=== PATIENT | male | born 1985 | race Caucasian/White ===

== ENCOUNTER 2017-06-27 16:33 | Emergency (ER) | payer OTHER ==
--- NOTE | 2017-06-27 17:06 | ER Document Report ---
ED Medical Screen (RME) - General Chief Complaint: Suicidal Ideation Stated Complaint: PSYCH EVAL Time Seen by Provider: 06/27/17 16:59 Notes: RAPID MEDICAL EVALUATION DISCLOSURE I have seen this patient as part of a Rapid Medical Evaluation and, if applicable, placed any initially appropriate orders. The patient will be seen and fully evaluated, including a full history and physical exam, by a provider ( in Main ED or Fast Track) when a room becomes available. 31-year-old male here with thoughts of suicide ongoing for the past few weeks. He has a plan to shoot himself with "a gun to the head". He reports that he no longer has guns in the house and that he gave him to law enforcement. He denies any homicidal ideations. He denies hallucinations. He last used cocaine several weeks ago. Today he has been drinking alcohol (whiskey). EXAM Mildly tachycardic (likely secondary to emotional state) Tearful Appears depressed TRAVEL OUTSIDE OF THE [place] IN LAST 30 DAYS: No - Related Data Allergies/Adverse Reactions: No Known Allergies Allergy (Unverified 06/27/17 16:34) Past Medical History - Social History Chew tobacco use (# tins/day): No Frequency of alcohol use: Heavy Drug Abuse: Cocaine, Marijuana Renal/ Medical History: Denies: Hx Peritoneal Dialysis Past Surgical History: Reports: Hx Abdominal Surgery - hernia repairs Physical Exam - Vital signs Vitals: Temp Pulse Resp BP Pulse Ox 98.6 F 118 H 20 134/84 H 96 06/27/17 16:43 06/27/17 16:43 06/27/17 16:43 06/27/17 16:43 06/27/17 16:43 Course - Vital Signs Vital signs: Temp Pulse Resp BP Pulse Ox 98.6 F 118 H 20 134/84 H 96 06/27/17 16:43 06/27/17 16:43 06/27/17 16:43 06/27/17 16:43 06/27/17 16:43
[2017-06-27 17:44] LABS: ABSOLUTE LYMPHOCYTES (AUTO) 3.4 10^3/uL (0.5-4.7); ABSOLUTE MONOCYTES (AUTO) 0.6 10^3/uL (0.1-1.4); ABSOLUTE NEUT (AUTO) 5.1 10^3/uL (1.7-8.2); BASOPHILS % (AUTO) 0.2 % (0-2); EOSINOPHILS % (AUTO) 0.3 % (0-6); HEMATOCRIT 50.6 % (37.9-51.0); HEMOGLOBIN 17.2 g/dL (13.5-17.0); LYMPHOCYTES % (AUTO) 37.6 % (13-45); MEAN CORPUSCULAR HEMOGLOBIN 30.8 pg (27.0-33.4); MEAN CORPUSCULAR VOLUME 90 fl (80-97); MONOCYTES % (AUTO) 6.4 % (3-13); PLATELET COUNT 304 10^3/uL (150-450); RED BLOOD COUNT 5.59 10^6/uL (4.35-5.55); RED CELL DISTRIBUTION WIDTH 13.4 % (11.5-14.0); SEGMENTED NEUTROPHILS % (AUTO) 55.5 % (42-78); TOTAL CELLS COUNTED % (AUTO) 100 %; WHITE BLOOD COUNT 9.1 10^3/uL (4.0-10.5)
[2017-06-27 17:58] LABS: ALANINE AMINOTRANSFERASE 32 U/L (21-72); ALBUMIN 5.4 g/dL (3.5-5.0); ALCOHOL 182 mg/dL (NONE DETECTED); ALKALINE PHOSPHATASE 73 U/L (38-126); ANION GAP 16 (5-19); ASPARTATE AMINO TRANSFERASE 28 U/L (17-59); BILIRUBIN,DIRECT 0.2 mg/dL (0.0-0.4); BILIRUBIN,TOTAL 0.5 mg/dL (0.2-1.3); BLOOD UREA NITROGEN 10 mg/dL (7-20); CALCIUM 10.1 mg/dL (8.4-10.2); CARBON DIOXIDE 25 mmol/L (22-30); CHLORIDE 109 mmol/L (98-107); GLUCOSE 92 mg/dL (75-110); POTASSIUM 4.4 mmol/L (3.6-5.0); SODIUM 149.7 mmol/L (137-145); TOTAL PROTEIN 8.4 g/dL (6.3-8.2)
[2017-06-27 17:59] LABS: ACETAMINOPHEN < 10 ug/mL (10-30); SALICYLATE < 1.0 mg/dL (2.0-20.0)
--- NOTE | 2017-06-27 18:18 | ER Document Report ---
ED General - General Chief Complaint: Suicidal Ideation Stated Complaint: PSYCH EVAL Time Seen by Provider: 06/27/17 16:59 Mode of Arrival: Medic Information source: Patient, Law Enforcement Notes: 31-year-old male with no significant past medical history presents via police escort after his friends called them after the patient threatened to shoot himself in the head. She states that he has been depressed over the last few months because of "job issues". He states that he does not have stable housing at this time. He does admit to cocaine a few weeks prior to arrival and whiskey drinking today. Denies prior suicide attempt, psychiatric admission. He has no physical complaints at this time. Denies homicidal ideation. TRAVEL OUTSIDE OF THE [place] IN LAST 30 DAYS: No - HPI Onset: Just prior to arrival Associated symptoms: None Exacerbated by: Denies Relieved by: Denies Similar symptoms previously: No Recently seen / treated by doctor: No - Related Data Allergies/Adverse Reactions: No Known Allergies Allergy (Unverified 06/27/17 16:34) Past Medical History - General Information source: Patient - Social History Smoking Status: Current Every Day Smoker Chew tobacco use (# tins/day): No Frequency of alcohol use: Heavy Drug Abuse: Cocaine, Marijuana Lives with: Friend Family History: Reviewed & Not Pertinent Patient has suicidal ideation: Yes Patient has homicidal ideation: No - Medical History Medical History: Negative Renal/ Medical History: Denies: Hx Peritoneal Dialysis Past Surgical History: Reports: Hx Abdominal Surgery - hernia repairs Review of Systems - Review of Systems Notes: REVIEW OF SYSTEMS: CONSTITUTIONAL : Denies fever, chills, or sweats. Denies recent illness. Denies weight loss, recent hospitalizations. EENT: Denies visula changes, eye pain. Denies nasal or sinus congestion or discharge. Denies sore throat, oral lesions, difficulty swallowing. CARDIOVASCULAR: Denies chest pain. Denies palpitations or racing or irregular heart beat. Denies lower extremity edema. RESPIRATORY: Denies cough, cold, or chest congestion. Denies shortness of breath, difficulty breathing, or wheezing. GASTROINTESTINAL: Denies abdominal pain or distention. Denies nausea, vomiting , or diarrhea. Denies blood in vomitus, stools, or per rectum. Denies black, tarry stools. Denies constipation. GENITOURINARY: Denies difficulty urinating, painful urination, burning, frequency, blood in urine, or vaginal discharge. MUSCULOSKELETAL: Denies back or neck pain or stiffness. Denies joint pain or swelling. SKIN: Denies rash, lesions or sores. HEMATOLOGIC : Denies easy bruising or bleeding. LYMPHATIC: Denies swollen, enlarged glands. NEUROLOGICAL: Denies confusion or altered mental status. Denies passing out or loss of consciousness. Denies dizziness or lightheadedness. Denies headache. Denies weakness or paralysis or loss of use of either side. Denies problems with gait or speech. Denies sensory loss, numbness, or tingling. Denies seizures. PSYCHIATRIC: Admits to anxiety and stress. It is to depression, suicidal ideation. Denies homicidal ideation, visual and auditory hallucinations. Physical Exam - Vital signs Vitals: Temp Pulse Resp BP Pulse Ox 98.6 F 118 H 20 134/84 H 96 06/27/17 16:43 06/27/17 16:43 06/27/17 16:43 06/27/17 16:43 06/27/17 16:43 Interpretation: Normal, Hypertensive - Notes Notes: PHYSICAL EXAMINATION: GENERAL: Well-appearing, well-nourished and in no acute distress. HEAD: Atraumatic, normocephalic. EYES: Pupils equal round and reactive to light, extraocular movements intact, sclera anicteric, conjunctiva are normal. ENT: Nares patent, oropharynx clear without exudates. Moist mucous membranes. NECK: Normal range of motion, supple without lymphadenopathy LUNGS: Breath sounds clear to auscultation bilaterally and equal. No wheezes rales or rhonchi. HEART: Regular rate and rhythm without murmurs ABDOMEN: Soft, nontender, nondistended abdomen. No guarding, no rebound. No masses appreciated. Musculoskeletal: Normal range of motion, no pitting or edema. No cyanosis. NEUROLOGICAL: Cranial nerves grossly intact. Normal speech, normal gait. Normal sensory, motor exams PSYCH: tearful, admits to suicidal ideation. Denies homicidal ideation. Denies visual and auditory hallucinations. SKIN: Warm, Dry, normal turgor, no rashes or lesions noted. Course - Re-evaluation Re-evalutation: 06/27/17 22:08 Laboratory 06/27/17 06/27/17 06/27/17 17:10 17:10 17:10 WBC 9.1 RBC 5.59 H Hgb 17.2 H Hct 50.6 MCV 90 MCH 30.8 MCHC 34.0 RDW 13.4 Plt Count 304 Seg Neutrophils % 55.5 Lymphocytes % 37.6 Monocytes % 6.4 Eosinophils % 0.3 Basophils % 0.2 Absolute Neutrophils 5.1 Absolute Lymphocytes 3.4 Absolute Monocytes 0.6 Absolute Eosinophils 0.0 Absolute Basophils 0.0 Sodium 149.7 H Potassium 4.4 Chloride 109 H Carbon Dioxide 25 Anion Gap 16 BUN 10 Creatinine 0.92 Est GFR ( Amer) > 60 Est GFR (Non-Af Amer) > 60 Glucose 92 Calcium 10.1 Total Bilirubin 0.5 Direct Bilirubin 0.2 Neonat Total Bilirubin Not Reportable Neonat Direct Bilirubin Not Reportable Neonat Indirect Bili Not Reportable AST 28 ALT 32 Alkaline Phosphatase 73 Total Protein 8.4 H Albumin 5.4 H Urine Color YELLOW Urine Appearance CLEAR Urine pH 5.0 Ur Specific [place] 1.017 Urine Protein NEGATIVE Urine Glucose (UA) NEGATIVE Urine Ketones NEGATIVE Urine Blood NEGATIVE Urine Nitrite NEGATIVE Urine Bilirubin NEGATIVE Urine Urobilinogen NEGATIVE Ur Leukocyte Esterase NEGATIVE Urine WBC (Auto) 1 Urine RBC (Auto) 0 U Hyaline Cast (Auto) 1 Urine Mucus (Auto) MOD Urine Ascorbic Acid NEGATIVE Salicylates < 1.0 L Urine Opiates Screen Urine Methadone Screen Acetaminophen < 10 L Ur Barbiturates Screen Ur Phencyclidine Scrn Ur Amphetamines Screen U Benzodiazepines Scrn Urine Cocaine Screen U Marijuana (THC) Screen Serum Alcohol 182 06/27/17 17:10 WBC RBC Hgb Hct MCV MCH MCHC RDW Plt Count Seg Neutrophils % Lymphocytes % Monocytes % Eosinophils % Basophils % Absolute Neutrophils Absolute Lymphocytes Absolute Monocytes Absolute Eosinophils Absolute Basophils Sodium Potassium Chloride Carbon Dioxide Anion Gap BUN Creatinine Est GFR ( Amer) Est GFR (Non-Af Amer) Glucose Calcium Total Bilirubin Direct Bilirubin Neonat Total Bilirubin Neonat Direct Bilirubin Neonat Indirect Bili AST ALT Alkaline Phosphatase Total Protein Albumin Urine Color Urine Appearance Urine pH Ur Specific [place] Urine Protein Urine Glucose (UA) Urine Ketones Urine Blood Urine Nitrite Urine Bilirubin Urine Urobilinogen Ur Leukocyte Esterase Urine WBC (Auto) Urine RBC (Auto) U Hyaline Cast (Auto) Urine Mucus (Auto) Urine Ascorbic Acid Salicylates Urine Opiates Screen NEGATIVE Urine Methadone Screen NEGATIVE Acetaminophen Ur Barbiturates Screen NEGATIVE Ur Phencyclidine Scrn NEGATIVE Ur Amphetamines Screen NEGATIVE U Benzodiazepines Scrn NEGATIVE Urine Cocaine Screen UNCONFIRMED POSITIVE U Marijuana (THC) Screen NEGATIVE Serum Alcohol Medically cleared for psychiatric evaluation. 06/27/17 23:54 31-year-old male with no significant past medical history presents via police escort after his friends called them after the patient threatened to shoot himself in the head. She states that he has been depressed over the last few months because of "job issues". He states that he does not have stable housing at this time. He does admit to cocaine a few weeks prior to arrival and whiskey drinking today. Denies prior suicide attempt, psychiatric admission. He has no physical complaints at this time. Denies homicidal ideation. Urine drug screen positive for cocaine. Patient remained cooperative throughout his ED course. He is medically cleared for psychiatric evaluation in the morning. - Vital Signs Vital signs: Temp Pulse Resp BP Pulse Ox 98.4 F 114 H 20 134/65 H 97 06/27/17 20:54 06/27/17 20:54 06/27/17 20:54 06/27/17 20:54 06/27/17 20:54 - Laboratory Result Diagrams: 06/27/17 17:10 06/27/17 17:10 Laboratory results interpreted by me: 06/27/17 06/27/17 17:10 17:10 RBC 5.59 H Hgb 17.2 H Sodium 149.7 H Chloride 109 H Total Protein 8.4 H Albumin 5.4 H Salicylates < 1.0 L Acetaminophen < 10 L
[2017-06-27 18:28] LABS: APPEARANCE,URINE CLEAR; BILIRUBIN,URINE NEGATIVE (NEGATIVE); COLOR,URINE YELLOW; GLUCOSE, URINE NEGATIVE (NEGATIVE); KETONES,URINE NEGATIVE (NEGATIVE); LEUKOCYTE ESTERASE,URINE NEGATIVE (NEGATIVE); NITRITE,URINE NEGATIVE (NEGATIVE); PROTEIN,URINE NEGATIVE (NEGATIVE); URINE AMPHETAMINES SCREEN NEGATIVE; URINE BARBITURATES SCREEN NEGATIVE; URINE BENZODIAZEPINES SCREEN NEGATIVE; URINE COCAINE SCREEN UNCONFIRMED POSITIVE; URINE MARIJUANA (THC) SCREEN NEGATIVE; URINE METHADONE SCREEN NEGATIVE; URINE PHENCYCLIDINE SCREEN NEGATIVE; URINE SPECIFIC GRAVITY 1.017; UROBILINOGEN,URINE NEGATIVE mg/dL (<2.0)
--- NOTE | 2017-06-27 18:46 | EKG REPORT ---
SEVERITY:- NORMAL ECG - SINUS RHYTHM : Confirmed by: Eduardo Thomas MD 27-Jun-2017 18:45:11
[2017-06-27] MEDS ORDERED: LORAZEPAM 1 MG TABLET PO ONE (22:26)
--- NOTE | 2017-06-28 10:31 | ER Document Report ---
Doctor's Note Notes: 06/28/17 10:30 Rounds: Chart reviewed and patient interviewed. Patient's being evaluated for substance abuse and suicidal thoughts. He says he does not feel suicidal anymore and feels better now. Admits that he drinks too heavily when he drinks. EtOH was 182. Positive for cocaine. Vital signs are all normal. Patient appears to be medically stable for transfer or discharge. Justin Fisher MD
[2017-06-28 14:22] VITALS: BP 123/68
--- NOTE | 2017-06-28 15:20 | PSYCHOLOGICAL NOTE ---
Psych Note - Psych Note Psych Note: Reason for consult: IVC Consent permissions:friends, Asiya and Harish 31-year-old male with no significant past medical history presents via police escort after his friends called them after the patient threatened to shoot himself in the head. She states that he has been depressed over the last few months because of "job issues". He states that he does not have stable housing at this time. Patient disclosed he been having financial difficulties that may be a be better off ending his life; patient's plan was to shoot himself. Patient states he been thinking about this for a couple weeks. Patient currently denies having any access to weapons as patient's personal weapon is now in the custody of [facility] in which patient plans to not request its return. He denies any previous attempts denies having his mental health diagnosis has never been inpatient in discloses that he is never been taking any medication. Patient reports that he does use marijuana cocaine and alcohol and "I never thought about how much to be affecting my finances... Maybe I really do have a problem." Patient thought his substance abuse was not as big of a deal however is very open to substance abuse treatment. Patient disclosed that he was embarrassed and did not want to tell anyone the difficulties that he been facing but now realizes that it was the best thing he could have done was talk to his friends. Patient acknowledges he did post on Facebook and drove from [place] to the local [facility] because there were areas that he liked to relax. 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 He disclosed he was in high demand up until he was fired for allowing a friend to sleep in 1 of the RVs who happened to be part of a different team. 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 He has plans to go to [place] with his friend Harish instead of going back to [place] with Asiya. Patient's friends Asiya and Wellington joined patient and clinician. They agree to be active participants in the patient's discharge plan. The current plan is to drive the patient up to [place] so he can pack his belongings at which point then will be driving down to [place] so the patient will be staying with Harish long-term. They agreed to ensure patient follows up with outpatient substance abuse and mental health treatment, and has no access to medications or weapons. Both patient and friends agree the patient is going to leave his weapon in the possession of the local auto body technician's department. Patient is alert and orientated to person, place, time and circumstance. Mood is euthymic with congruent affect as evidenced by smiling laughing engaging with clinician. Patient denies current suicidal ideation endorses suicidal ideation while under the influence the previous evening. Patient denies homicidal ideation. Delusions are absent behaviors congruent with intact reality based presentation i.e. organized and linear thought process. Eye contact is well-maintained. Conversational speech was within normal rate, tone and prosody. Intellectual abilities appear to be within the average range. Attention and concentration are good. Insight, judgment, impulse control are currently good. Clinician notes patient has had strong support system present at [facility] ED. [facility] ED staff has had to request patient received only 2 visitors at a time with some visitors driving from out of state i.e. [place] and [place]. 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 Patient no longer meets IVC criteria per [place] GS 122C. Patient describes wanting to harm himself under the influence. Patient spoke very candidly about the experience and has acknowledged strong support system. Patient is demonstrated forward thinking with his future plans and agrees to obtain both substance and mental health treatment once arriving to [place]. Patient's friends Asiya and Gavino disclose they were active participants in patient's discharge plan to ensure he follows through with recommendations does not have access to medications or weapons. Patient's personal weapon is no longer in his possession and is currently in the possession of [facility]. He states he has no plans of attempting to retain that weapon. Patient's friends and patient discussed with clinician best options for therapeutic interventions; patient is recommended for solution focused therapy in addition to substance abuse treatment. At this time there are no medication recommendations until patient achieves to maintain sobriety. Dr. Thorpe was consulted on the care and management this patient; attending physician is in agreement with recommendations and disposition.
== END 2017-06-28 14:24 | disposition home or self-care (01) ==
LOC: ER 16:33
DX: R45.851 Suicidal ideations (principal); F14.10 Cocaine abuse, uncomplicated; F10.10 Alcohol abuse, uncomplicated; F41.9 Anxiety disorder, unspecified; F17.200 Nicotine dependence, unspecified, uncomplicated
CPT/HCPCS: 36415; 80053; 80307; 81001; 85025; 93005; 93010; 99285